=== PATIENT | female | born 1955 | race Hispanic/Latino ===

== ENCOUNTER → 2025-03-23 | Outpatient (REF) | payer OTHER | LOC: MAMMO 13:15 | PROVIDERS: ATTEND Family Medicine | DX: Z12.31 Encounter for screening mammogram for malignant neoplasm of breast (principal); M81.0 Age-related osteoporosis without current pathological fracture; Z78.0 Asymptomatic menopausal state; M25.562 Pain in left knee | CPT/HCPCS: 77067; 77080 ==

== ENCOUNTER → 2025-04-21 | Outpatient (REF) | payer OTHER | LOC: MAMMO 13:17 | PROVIDERS: ATTEND Family Medicine | DX: R92.8 Other abnormal and inconclusive findings on diagnostic imaging of breast (principal) ==